=== PATIENT | female | born 1995 | race American Indian/Alaskan Native ===

== ENCOUNTER 2021-05-20 12:14 | Emergency (ER) | payer SELFPAY ==
[2021-05-20 12:23] VITALS: BP 136/87
--- NOTE | 2021-05-20 14:05 | Emergency Department Report ---
ED Female HPI - General Chief complaint: Urogenital-Female Stated complaint: BLISTERS NEAR VAGINA AFTER HOT WAX Time Seen by Provider: 05/20/21 13:44 Source: patient Mode of arrival: Ambulatory Limitations: No Limitations - History of Present Illness Initial comments: This is a 25-year-old female nontoxic, well nourished in appearance, no acute signs of distress presents to the ED with c/o of small vaginal abrasion times several days. Patient stated she had a [place] wax last week Wednesday and developed pain to the area. Patient denies any pus or drainage. Patient denies any fever, chills, nausea, vomiting, chest pain, shortness of breath, headache or stiff neck. Patient denies any allergies or significant past medical history. -: days(s) Radiation: non-radiating Severity: mild Severity scale (0 -10): 3 Quality: burning Consistency: intermittent Improves with: none Worsens with: other (Palpation) Associated Symptoms: denies other symptoms. denies: vaginal discharge, vaginal bleeding, abdominal pain, nausea/vomiting, fever/chills, headaches, loss of appetite, dysuria, hematuria, rash, seizure, shortness of breath, syncope, weakness - Related Data Previous Rx's Medication Instructions Recorded Last Taken Type Acyclovir [Zovirax] 30 gm TP 5XD #1 tube 08/30/13 10/15/13 Rx Lidocaine Topical 5% [Xylocaine 35.44 gm TP 5XD #1 tube 08/30/13 10/15/13 Rx Topical 5%] Valacyclovir HCl [Valtrex] 1,000 mg PO Q12H #20 tablet 08/30/13 10/15/13 Rx 1000 mgs Docusate Sodium [Colace] 100 mg PO BID PRN #60 capsule 10/20/13 Unknown Rx Ibuprofen [Motrin] 800 mg PO TID PRN #60 tablet 10/20/13 Unknown Rx oxyCODONE /ACETAMINOPHEN [Percocet 1 tab PO Q4HR PRN #45 tablet 10/20/13 Unknown Rx 5/325 mg] Neomycin/Bacitracin/Polymyxinb 3.75 gm TP Q8H 7 Days #1 tube 05/20/21 Unknown Rx [Triple Antibiotic Ointment] Vits A and D/White Pet/Lanolin [A 113 gm TP Q8H PRN 7 Days #1 tube 05/20/21 Unknown Rx and D Ointment] Allergies Allergy/AdvReac Type Severity Reaction Status Date / Time No Known Allergies Allergy Verified 10/19/13 09:44 ED Review of Systems ROS: Stated complaint: BLISTERS NEAR VAGINA AFTER HOT WAX Other details as noted in HPI Comment: All other systems reviewed and negative Constitutional: denies: chills, fever Eyes: denies: eye pain, eye discharge, vision change ENT: denies: ear pain, throat pain Respiratory: denies: cough, shortness of breath, wheezing Cardiovascular: denies: chest pain, palpitations Endocrine: no symptoms reported Gastrointestinal: denies: abdominal pain, nausea, diarrhea Genitourinary: denies: urgency, dysuria, discharge Musculoskeletal: denies: back pain, joint swelling, arthralgia Skin: denies: rash, lesions Neurological: denies: headache, weakness, paresthesias Psychiatric: denies: anxiety, depression Hematological/Lymphatic: denies: easy bleeding, easy bruising ED Past Medical Hx - Past Medical History Previous Medical History?: No Hx Hypertension: No Hx Congestive Heart Failure: No Hx Diabetes: No Hx Deep Vein Thrombosis: No Hx Renal Disease: No Hx Sickle Cell Disease: No Hx Seizures: No Hx Asthma: No Hx COPD: No Hx HIV: No - Surgical History Past Surgical History?: Yes Additional Surgical History: - Social History Smoking Status: Never Smoker - Medications Home Medications: Home Medications Medication Instructions Recorded Confirmed Last Taken Type Acyclovir [Zovirax] 30 gm TP 5XD #1 tube 08/30/13 10/20/13 10/15/13 Rx Lidocaine Topical 5% [Xylocaine 35.44 gm TP 5XD #1 tube 08/30/13 10/20/13 10/15/13 Rx Topical 5%] Valacyclovir HCl [Valtrex] 1,000 mg PO Q12H #20 tablet 08/30/13 10/20/13 10/15/13 Rx 1000 mgs Docusate Sodium [Colace] 100 mg PO BID PRN #60 capsule 10/20/13 Unknown Rx Ibuprofen [Motrin] 800 mg PO TID PRN #60 tablet 10/20/13 Unknown Rx oxyCODONE /ACETAMINOPHEN [Percocet 1 tab PO Q4HR PRN #45 tablet 10/20/13 Unknown Rx 5/325 mg] Neomycin/Bacitracin/Polymyxinb 3.75 gm TP Q8H 7 Days #1 tube 05/20/21 Unknown Rx [Triple Antibiotic Ointment] Vits A and D/White Pet/Lanolin [A 113 gm TP Q8H PRN 7 Days #1 tube 05/20/21 Unknown Rx and D Ointment] ED Physical Exam - General Limitations: No Limitations General appearance: alert, in no apparent distress - Head Head exam: Present: atraumatic, normocephalic - Eye Eye exam: Present: normal appearance - Neck Neck exam: Present: normal inspection, full ROM. Absent: lymphadenopathy - Respiratory Respiratory exam: Absent: respiratory distress - Cardiovascular Cardiovascular Exam: Present: regular rate - GI/Abdominal GI/Abdominal exam: Present: soft. Absent: distended, tenderness - External exam: Present: other (Small right side near perianal/labia majora abrasion x2. No cellulitis. Miriam Leigh RN present during exam.). Absent: erythema, swelling, lesions, lacerations, ecchymosis, bleeding - Extremities Exam Extremities exam: Present: normal inspection, full ROM - Back Exam Back exam: Present: normal inspection, full ROM - Neurological Exam Neurological exam: Present: alert, oriented X3, normal gait - Psychiatric Psychiatric exam: Present: normal affect, normal mood - Skin Skin exam: Present: warm, dry, intact, normal color. Absent: rash ED Course Vital Signs 05/20/21 12:22 Temperature 98.3 F Pulse Rate 94 H Respiratory 18 Rate Blood Pressure 136/87 [Right] O2 Sat by Pulse 97 Oximetry - Reevaluation(s) Reevaluation #1: 05/20/21 14:03 Patient is speaking in full sentences with no signs of distress noted. ED Medical Decision Making - Medical Decision Making 18 several female that presents with vaginal abrasion. Patient is stable and was examined by me. Patient be discharged with A/D ointment. Patient was instructed to follow-up with a primary care doctor in 3-5 days or if symptoms worsen and continue return to emergency room as soon as possible. At time of d ischarge, the patient does not seem toxic or ill in appearance. No acute signs of distress noted. Patient agrees to discharge treatment plan of care. No further questions noted by the patient. Critical care attestation.: If time is entered above; I have spent that time in minutes in the direct care of this critically ill patient, excluding procedure time. ED Disposition Clinical Impression: Vaginal abrasion Qualifiers: Encounter type: initial encounter Qualified Code(s): S30.814A - Abrasion of vagina and vulva, initial encounter Disposition: TO HOME OR SELFCARE Is pt being admited?: No Does the pt Need Aspirin: No Condition: Stable Instructions: Abrasion, Wound Care, Adult Additional Instructions: Follow-up with a primary care doctor in 3-5 days or if symptoms worsen and continue return to emergency room as soon as possible. Prescriptions: Vits A and D/White Pet/Lanolin [A and D Ointment] 113 gm TP Q8H PRN 7 Days #1 tube PRN Reason: abrasion Neomycin/Bacitracin/Polymyxinb [Triple Antibiotic Ointment] 3.75 gm TP Q8H 7 Days #1 tube Referrals: RUEL ZARAGOZA MD [Primary Care Provider] - 3-5 Days CARMINA DIXON MD [Staff Physician] - 3-5 Days Forms: Work/School Release Form(ED) Time of Disposition: 14:06
== END 2021-05-20 14:43 | disposition home or self-care (01) ==
LOC: ED 12:14
DX: S30.814A Abrasion of vagina and vulva, initial encounter (principal); Z98.890 Other specified postprocedural states; Z79.899 Other long term (current) drug therapy; X58.XXXA Exposure to other specified factors, initial encounter; Y93.89 Activity, other specified; Y92.89 Other specified places as the place of occurrence of the external cause; Y99.8 Other external cause status
CPT/HCPCS: 99282